=== PATIENT | male | born 1990 | race Two or more races ===

== ENCOUNTER 2025-01-08 10:03 | Inpatient (IN) | payer MEDICAID, OTHER, SELFPAY ==
[2025-01-08 10:08] VITALS: BP 138/80; BP 139/79; PULSE 61; PULSE 78; RESP 16; TEMP 36.4; O2SAT 100; O2SAT 98; BMI 25.7
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
[2025-01-08 10:34] VITALS: RESP 16
[2025-01-08 11:15] LABS: MANUAL DIFF FLAG NO
[2025-01-08 11:18] LABS: Basophils Absolute Auto 0.1 X10*3/uL (0.0-0.2); Eosinophils Absolute Auto 0.1 X10*3/uL (0.0-0.4); Eosinophils Percent Auto 2.1 % (0-4); Hematocrit 44.2 % (42.0-52.0); Hemoglobin 14.4 g/dl (14.0-18.0); Imm Gran Abs Auto 0.01 X10*3/uL (0.00-0.03); Imm Gran Pct Auto 0.2 % (0.0-0.4); Lymphocytes Percent Auto 20.2 % (20-40); Mean Corpuscular HGB Conc 32.6 g/dl (31.0-36.0); Mean Corpuscular Hemoglobin 24.7 pg (27.0-33.0); Mean Corpuscular Volume 75.8 fL (80.0-98.0); Mean Platelet Volume 10.8 fL (9.4-12.4); Monocytes Absolute Auto 0.2 X10*3/uL (0.1-1.2); Monocytes Percent Auto 4.5 % (2-11); Neutrophils Absolute Auto 3.5 x10*3/uL (2.0-8.3); Platelet Count 225 X10*3/uL (160-400); Red Blood Count 5.83 X10*6/uL (4.60-5.80); Red Cell Distribution Width 15.5 % (11.0-16.0); White Blood Count 4.8 X10*3/uL (4.8-10.8)
[2025-01-08 11:25] LABS: Appearance Urine Clear; Color Urine Yellow; Glucose Urine UA Negative (Negative); Leukocyte Esterase Urine Negative (Negative); Nitrite Urine Negative (Negative); Urine Blood Negative (Negative); Urine Ketones Negative (Negative); Urine Protein Negative (Neg-Trace)
[2025-01-08 11:29] LABS: Amphetamine Screen Urine Not Detected (Not Detect); Barbiturates, Urine Not Detected (Not Detect); Benzodiazepines Screen Urine Not Detected (Not Detect); Buprenorphine Scr Not Detected (Not Detect); Cannabinoid Screen Urine Not Detected (Not Detect); Cocaine Screen Urine Not Detected (Not Detect); Fentanyl, urine Not Detected (Not Detect); Methadone Screen, Urine Not Detected (Not Detect); Opiate Screen Urine Not Detected (Not Detect); Oxycodone Screen Urine Not Detected (Not Detect); Phencyclidine Screen Urine Not Detected (Not Detect)
--- NOTE | 2025-01-08 11:39 | PC.NURSE ---
pt reports I have no behavioral health concerns
[2025-01-08 11:46] LABS: Alanine Aminotransferase 20 U/L (0-40); Albumin Level 4.2 g/dL (3.5-5.0); Alkaline Phosphatase 71 U/L (39-117); Anion Gap 13 (12-20); Aspartate Amino Transferase 20 U/L (5-37); Bilirubin Total 0.3 mg/dL (0.0-1.0); Blood Urea Nitrogen 11 mg/dL (9-16); Calcium 9.2 mg/dL (8.4-10.2); Carbon Dioxide 25 mmol/L (22-29); Chloride 106 mmol/L (96-108); Creatinine Clr Calc Pharmacy 144.4; Estimated Glomerular Filt Rate > 60; Ethanol < 10 mg/dL; Glucose Random 124 mg/dL (60-115); Sodium 140 mmol/L (135-145)
[2025-01-08 15:13] VITALS: RESP 16
[2025-01-08] MEDS: Acetaminophen 325 MG TABLET 650 MG PO (15:39)
--- NOTE | 2025-01-08 19:15 | PC.NURSE ---
patient awakens and has a little pressured speech from time to time mildly restless appears in no distress
--- NOTE | 2025-01-08 20:14 | PHA.MEDREC ---
Pharmacy Consult ? Medication Reconciliation Pharmacy has completed the medication reconciliation.done using meds brought to pharmacy
[2025-01-08 20:44] VITALS: BP 139/79
[2025-01-08] MEDS: carBAMazepine ER 200 MG TAB.ER.12H 400 MG PO (20:44)
[2025-01-08] MEDS: amLODIPine Besylate 5 MG TABLET PO (20:44)
[2025-01-08 22:02] VITALS: BP 147/90; PULSE 90; RESP 16; TEMP 36.9; O2SAT 97
--- NOTE | 2025-01-08 22:03 | PC.NURSE ---
vs were a late entry, taken around 2100 prior to administration of norvasc
[2025-01-09] MEDS: Acetaminophen 325 MG TABLET 650 MG PO ×2 (01:23→10:44)
[2025-01-09] MEDS: diphenhydrAMINE HCL 25 MG CAPSULE 50 MG PO (01:24)
[2025-01-09 01:32] VITALS: BP 134/75; PULSE 93; RESP 18; TEMP 36.6; O2SAT 98
--- NOTE | 2025-01-09 07:29 | PC.NURSE ---
ASSUMED CARE OF PT AT 0645. PT IS LAYING IN BED SLEEPING. NO APPARENT DISTRESS. AWAITING CARE TEAM ASSESSMENT.
[2025-01-09 08:01] VITALS: BP 105/48; PULSE 80; RESP 14; TEMP 36.7; O2SAT 97
[2025-01-09 08:38] VITALS: BP 110/64
[2025-01-09] MEDS: amLODIPine Besylate 5 MG TABLET PO (08:38)
[2025-01-09] MEDS: carBAMazepine ER 200 MG TAB.ER.12H 400 MG PO ×2 (08:39→20:28)
--- NOTE | 2025-01-09 10:28 | MHC.EDTECH ---
ambulated to bathroom to shower, AM care done ,RN aware
[2025-01-09 15:55] VITALS: BP 107/81; PULSE 83; RESP 19; TEMP 36.5; O2SAT 99
[2025-01-09 19:48] VITALS: BP 146/77; PULSE 76; RESP 16; TEMP 37.1; O2SAT 98
[2025-01-09] MEDS: Nicotine Polacrilex 2 MG GUM 4 MG BUCCAL (19:48)
[2025-01-09] MEDS: traZODone HCL 100 MG TABLET PO (20:29)
[2025-01-10] VITALS (29 sets, daily range): BP systolic 142–147; BP diastolic 77–94; PULSE 64–86; RESP 16–24; TEMP 37.1; O2SAT 96–100
[2025-01-10] MEDS: Nicotine Polacrilex 2 MG GUM 4 MG BUCCAL (01:36)
[2025-01-10] MEDS: OLANZapine 7.5 MG TABLET 15 MG PO (01:51)
--- NOTE | 2025-01-10 01:52 | PC.NURSE ---
Addendum entered by Carlos Enrique Cárdenas RN 01/10/25 03:36: pt asleep Addendum entered by Carlos Enrique Cárdenas RN 01/10/25 03:14: back in bed in side lying position Addendum entered by Carlos Enrique Cárdenas RN 01/10/25 02:52: pt was supine in bed for about 10 minutes now pacing again although no rambling/disorganized speech at this time. Addendum entered by Carlos Enrique Cárdenas RN 01/10/25 02:30: at this time, patient has become less disruptive, ceased shadowboxing in room. continues to pace outside room with headphones on listening to music, drinking water, writing notes/song lyrics on paper. Original Note: as of about 0140, pt becoming increasingly restless, disorganized, rambling, and more difficult to redirect. has shirt off shadow boxing in room. not violent toward staff at this time. multiple requests from staff to reduce volume. took bedtime zyprexa voluntarily after minutes of deliberating with this nurse.
--- NOTE | 2025-01-10 07:30 | PC.NURSE ---
Assumed care of patient at 0645, patient appears to be in no apparent distress this am, sleeping, respirations even and unlabored. Continue plan of care for IPLOC
--- NOTE | 2025-01-10 08:43 | MHC.EDTECH ---
Patient refused to have EKG done.
--- NOTE | 2025-01-10 08:45 | PC.NURSE ---
patient refusing am medications and EKG stating I don't need that shit
--- NOTE | 2025-01-10 10:00 | PC.NURSE ---
pt once again refused am medications
--- NOTE | 2025-01-10 10:44 | PC.NURSE ---
pt pacing around BH pod, threatening staff verbally, stating I know what I be doing, bright bolaños gotta fuck with me . when offered PO medications, he adamantly refused I don't need any fucking medications, you aint knowing what I need, stupid bitch . pt continues to be hyperverbal, perseverating on medications and being discharged
--- NOTE | 2025-01-10 10:59 | PC.NURSE ---
pt continues to threaten staff, yall nurses are stupid, I swear Im gonna take yall out
--- NOTE | 2025-01-10 11:05 | MHC.EDTECH ---
Patient refused to have vitals checked.
[2025-01-10] MEDS: diphenhydrAMINE HCL 50 MG/ML VIAL IM (11:30)
[2025-01-10] MEDS: Haloperidol Lactate 5 MG/ML VIAL IM (11:30)
[2025-01-10] MEDS: Midazolam HCl 2 MG/2 ML VIAL IM (12:20)
[2025-01-10] MEDS: Acetaminophen 325 MG TABLET 650 MG PO (13:56)
--- NOTE | 2025-01-10 14:14 | MHC.CARE ---
Oren Waterman ([phone]) [facility] outreach
[2025-01-10] MEDS: OLANZapine 10 MG VIAL IM (14:45)
--- NOTE | 2025-01-10 17:22 | MHC.CARE ---
Spoke to patient's ACCS worker, Oren Waterman, he stated that patient has not missed an Invega 234 mg injection in 3-4 months. Oren brought him to [facility] for the shot on 12/28/24, patient complained about the VNA so it was switched to the pharmacy. [facility] ([phone]), still delivers other medications once a day but are contracted for two visits a day and they leave am and pm medications with him. Patient has not taken Zyprexa since 09/29/24 because he believes it is an antidepressant that will make him gain weight.
[2025-01-10] MEDS: chlorproMAZINE HCl 25 MG/ML AMPUL 100 MG IM ×2 (17:35→19:00)
[2025-01-10] MEDS: diazePAM 10 MG/2 ML CARTRIDGE IM (19:00)
[2025-01-10] MEDS: OLANZapine 10 MG VIAL 20 MG IM (20:50)
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
--- NOTE | 2025-01-11 00:33 | PC.NURSE ---
This RN assumed pt care @ 2300. Pt up and ambulating to the restroom Plan of care ongoing.
--- NOTE | 2025-01-11 01:24 | PC.NURSE ---
Pt requested and given food and drink Pt returned to bed Plan of care ongoing.
--- NOTE | 2025-01-11 03:52 | PC.NURSE ---
Pt at nurses station stating I need you to make sure that you get everything out of that room Pt requested and given food and drink Plan of care ongoing.
--- NOTE | 2025-01-11 03:59 | PC.NURSE ---
Pt at nurses station stating that fat bitch from yesterday Plan of care ongoing.
--- NOTE | 2025-01-11 04:17 | PC.NURSE ---
Pt back at nurses station Pt speaking tangentially Plan of care ongoing
--- NOTE | 2025-01-11 04:25 | PC.NURSE ---
Pt at the nurses station yelling at tech get it through your fucking head, you dont listen. Pt getting aggressive Security called Plan of care ongoing.
[2025-01-11] MEDS: OLANZapine 10 MG VIAL 20 MG IM (04:39)
--- NOTE | 2025-01-11 04:45 | PC.NURSE ---
Pt requesting meds Pt medicated per oct Plan of care ongoing.
--- NOTE | 2025-01-11 08:48 | PC.NURSE ---
Patient up to nurses station, refusing medication, calling staff liars, calm and this time
--- NOTE | 2025-01-11 09:07 | PC.NURSE ---
pt declined repeat vitals, educated on importance of of vitals d/t medical history.
--- NOTE | 2025-01-11 09:07 | MHC.EDTECH ---
pt refused vital signs and EKG. Pt ate 100% of breakfast. Patient previously asked for shower but now refusing.
[2025-01-11] MEDS: carBAMazepine ER 200 MG TAB.ER.12H 400 MG PO ×2 (11:01→20:24)
[2025-01-11] MEDS: Acetaminophen 325 MG TABLET 650 MG PO (11:24)
--- NOTE | 2025-01-11 11:41 | PC.NURSE ---
Patient up ambulating around unit, singing and listening to music, speech is fast and not making sense
--- NOTE | 2025-01-11 17:18 | MHC.EDTECH ---
patient continues to refuse vital signs
--- NOTE | 2025-01-11 18:19 | PC.NURSE ---
pt has been manic with rapid speech and pacing in the ed pod, pt offered po prn's and declined, becoming agitated when offered. I don't trust white people. you are trying to make me have a seizure , pt did not threaten,
[2025-01-11] MEDS: diphenhydrAMINE HCL 25 MG CAPSULE 50 MG PO (20:24)
--- NOTE | 2025-01-11 23:16 | MHC.EDTECH ---
pt refusing EKG. rn aware.
[2025-01-12] MEDS: Acetaminophen 325 MG TABLET 650 MG PO ×2 (04:27→19:17)
[2025-01-12] MEDS: diphenhydrAMINE HCL 25 MG CAPSULE 50 MG PO (06:48)
[2025-01-12 08:11] VITALS: BP 0/0
[2025-01-12] MEDS: amLODIPine Besylate 5 MG TABLET PO (08:11)
[2025-01-12] MEDS: carBAMazepine ER 200 MG TAB.ER.12H 400 MG PO ×2 (08:13→21:10)
--- NOTE | 2025-01-12 10:26 | PC.NURSE ---
pt took a shower and ate breakfast, medicated as ordered, has been hyperverbal and manic this am, but less so than last night, pt has been redirectable when asked to sing more softly, pt has been listening to music on headphones and generally has appeared happy. currently watching tv with another pt, pt did talk with Don from security who he knows from [facility] and the have a good connection
[2025-01-12 13:41] VITALS: BP 146/70; PULSE 93; RESP 18; TEMP 36.6; O2SAT 96
--- NOTE | 2025-01-12 15:40 | PC.ADMIT ---
David is a 34 y/o icelandic speaking male who was admitted to [facility] at 1305 from the pod on a 12b for treatment of schizoaffective d/o , bipolar type. Pt was at [facility] walking in and out of peers room, broke the door and eloped. [place] [place]. Pt was acting erratically. Suspicion is that pt was non-compliant with medications in the community. In the ED pt became agitated, vulgar and aggressive requiring restraints in excess of 10 hrs. Pt was cooperative when coming to the floor, is A&O X3, but has no insight into the situation and hospitalization. Pt suspicious and refused to sign MIMI?s. Mood is euphoric, manic with an elated affect. Speech is pressured and loud, thoughts are disorganized, and tangential with flight of ideas. Pt has difficulty remaining focused. Pt denies SI/HI/AVH, with no intent to harm self or others. Pt believes the ativan is poison and that certain people want to hurt him. Pt reports hx of TBI as a child. Pt has delusions of grandeur that he is writing rap songs that are going to make him famous. Pt reports a good appetite with no recent weight loss. Pt reports 4 hours of sleep per night. Pts tox screen was negative and he denies substance use. Pt reports being a daily smoker and requests nicotine replacement gum. Pt denies any acute physical complaints. Pt placed on 15 minute safety checks.
[2025-01-12 20:00] VITALS: PULSE 107; RESP 18; TEMP 36.7; O2SAT 98
[2025-01-12] MEDS: OLANZapine ODT 10 MG TAB.RAPDIS 20 MG TRANSLINGU (21:10)
[2025-01-13 08:00] VITALS: RESP 18
[2025-01-13] MEDS: carBAMazepine ER 200 MG TAB.ER.12H 400 MG PO ×2 (10:00→19:52)
--- NOTE | 2025-01-13 10:13 | HO.PSYADMNOT ---
HPI Chief Complaint: jean Diagnostics Vital Signs (24Hr): Vital Signs - 24 hr 01/12/25 13:41 01/12/25 20:00 01/13/25 08:00 Temperature 97.8 F 98.0 F Pulse Rate 93 107 H Respiratory Rate 18 18 18 Blood Pressure 146/70 H Pulse Oximetry 96 98 Oxygen Delivery Method Room Air Room Air BMI result Body Mass Index 25.7 Labs 01/08/25 11:10 01/08/25 11:10 Meds/Allergies Meds Home Medications ?Medication ?Instructions ?Recorded ?Confirmed ?Type amlodipine 5 mg tablet 5 mg PO DAILY 01/08/25 01/08/25 History benztropine 1 mg tablet 1 mg PO BEDTIME PRN eps 01/08/25 01/08/25 History carbamazepine 400 mg 400 mg PO BID 01/08/25 01/08/25 History tablet,extended release,12 hr (Tegretol XR) olanzapine 15 mg tablet 15 mg PO BEDTIME 01/08/25 01/08/25 History sennosides 8.6 mg tablet (senna) 17.2 mg PO BEDTIME PRN Constipation 01/08/25 01/08/25 History trazodone 100 mg tablet 100 mg PO BEDTIME PRN insomnia not 01/08/25 01/08/25 History relieved by benadryl Allergies Allergies Allergy/AdvReac Type Severity Reaction Status Date / Time cat dander Allergy Intermediate Difficulty Verified 01/08/25 10:30 Breathing dog dander Allergy Intermediate Difficulty Verified 01/08/25 10:30 Breathing From Wellbutrin AdvReac Intermediate Irritable Uncoded 01/08/25 10:21 Assessment & Plan Statement Statement: I have reviewed the history and physical and performed a pertinent examination on my patient. No changes have occurred unless specified. If the History and Physical was not performed prior to admission, the Hospitalist's service will be consulted for completing the admission physical. Time Spent With Patient Time: Total time managing care of this patient today ____ minutes.
[2025-01-13] MEDS: diphenhydrAMINE HCL 25 MG CAPSULE 50 MG PO (12:48)
[2025-01-13] MEDS: diazePAM 5 MG TABLET 10 MG PO ×2 (12:49→19:53)
[2025-01-13] MEDS: chlorproMAZINE HCl 100 MG TABLET 200 MG PO ×2 (12:49→19:53)
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
[2025-01-13] MEDS: OLANZapine ODT 10 MG TAB.RAPDIS 20 MG TRANSLINGU (19:51)
[2025-01-13] MEDS: LORazepam 1 MG TABLET PO (19:51)
[2025-01-13 20:00] VITALS: BP 139/88; PULSE 128; TEMP 36.4; O2SAT 100
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
[2025-01-14 08:00] VITALS: BP 150/62; PULSE 84; RESP 18; TEMP 36.6; O2SAT 99
[2025-01-14] MEDS: carBAMazepine ER 200 MG TAB.ER.12H 400 MG PO (09:00)
[2025-01-14] MEDS: amLODIPine Besylate 5 MG TABLET PO (09:00)
[2025-01-14] MEDS: diphenhydrAMINE HCL 25 MG CAPSULE 50 MG PO (09:29)
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
--- NOTE | 2025-01-14 12:23 | PC.NURSE ---
David was transferred from [facility] to [facility] at 1218. During the transfer he was accompanied by 2 security guards and this RN. Throughout the transport David made hyperverbal derogatory comments to RN, voiced insistence that he be treated only by males and indicated disrespect for female employees. He was otherwise cooperative with transfer.
[2025-01-14] MEDS: Acetaminophen 325 MG TABLET 650 MG PO (13:06)
[2025-01-14] MEDS: Nicotine Polacrilex 2 MG GUM 4 MG BUCCAL (18:18)
[2025-01-14] MEDS: chlorproMAZINE HCl 100 MG TABLET 200 MG PO (21:25)
[2025-01-14] MEDS: diazePAM 5 MG TABLET 10 MG PO (21:25)
[2025-01-14 23:08] VITALS: BP 142/89; PULSE 78; RESP 16; TEMP 36.6; O2SAT 96
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
[2025-01-15] MEDS: carBAMazepine ER 200 MG TAB.ER.12H 400 MG PO ×2 (09:43→20:23)
[2025-01-15] MEDS: amLODIPine Besylate 5 MG TABLET PO (09:43)
[2025-01-15 10:28] VITALS: RESP 18
[2025-01-15] MEDS: Acetaminophen 325 MG TABLET 650 MG PO ×2 (11:40→20:25)
[2025-01-15 20:00] VITALS: BP 143/82; PULSE 92; RESP 18; TEMP 36.5; O2SAT 98
[2025-01-15] MEDS: OLANZapine ODT 10 MG TAB.RAPDIS 20 MG TRANSLINGU (20:23)
[2025-01-16 09:17] VITALS: BP 109/58; PULSE 114; RESP 14; TEMP 36.6; O2SAT 97
[2025-01-16] MEDS: carBAMazepine ER 200 MG TAB.ER.12H 400 MG PO ×2 (09:18→20:14)
[2025-01-16] MEDS: amLODIPine Besylate 5 MG TABLET PO (09:19)
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
[2025-01-16] MEDS: Nicotine Polacrilex 2 MG GUM 4 MG BUCCAL ×2 (16:30→20:02)
[2025-01-16 19:50] VITALS: BP 126/67; PULSE 93; RESP 16; TEMP 36.4; O2SAT 96
[2025-01-16] MEDS: OLANZapine ODT 10 MG TAB.RAPDIS 20 MG TRANSLINGU (20:13)
[2025-01-16] MEDS: Acetaminophen 325 MG TABLET 650 MG PO (21:46)
[2025-01-17] MEDS: Nicotine Polacrilex 2 MG GUM 4 MG BUCCAL ×3 (01:41→21:42)
[2025-01-17 07:20] VITALS: BP 113/53; PULSE 71; RESP 14; TEMP 36.4; O2SAT 100
[2025-01-17 08:08] VITALS: BP 113/53
[2025-01-17] MEDS: amLODIPine Besylate 5 MG TABLET PO (08:08)
[2025-01-17] MEDS: carBAMazepine ER 200 MG TAB.ER.12H 400 MG PO ×2 (08:08→20:38)
--- NOTE | 2025-01-17 11:33 | PC.NURSE ---
Pt signed in on a CV then signed a 3 day up on 01/20
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
[2025-01-17] MEDS: Acetaminophen 325 MG TABLET 650 MG PO (17:43)
[2025-01-17 19:10] VITALS: BP 139/65; PULSE 80; RESP 16; TEMP 36.5; O2SAT 99
[2025-01-17 20:13] LABS: MANUAL DIFF FLAG NO
[2025-01-17 20:15] LABS: Basophils Absolute Auto 0.1 X10*3/uL (0.0-0.2); Basophils Percent Auto 1.3 % (0-2); Eosinophils Absolute Auto 0.5 X10*3/uL (0.0-0.4); Eosinophils Percent Auto 11.1 % (0-4); Hematocrit 46.2 % (42.0-52.0); Imm Gran Abs Auto 0.02 X10*3/uL (0.00-0.03); Imm Gran Pct Auto 0.4 % (0.0-0.4); Lymphocytes Absolute Auto 1.6 X10*3/uL (1.2-4.9); Lymphocytes Percent Auto 35.8 % (20-40); Mean Corpuscular HGB Conc 32.5 g/dl (31.0-36.0); Mean Corpuscular Hemoglobin 24.6 pg (27.0-33.0); Mean Corpuscular Volume 75.7 fL (80.0-98.0); Monocytes Absolute Auto 0.4 X10*3/uL (0.1-1.2); Monocytes Percent Auto 8.9 % (2-11); Neutrophils Absolute Auto 1.9 x10*3/uL (2.0-8.3); Neutrophils Percent Auto 42.5 % (45-73); Platelet Count 264 X10*3/uL (160-400); Red Cell Distribution Width 15.5 % (11.0-16.0); White Blood Count 4.5 X10*3/uL (4.8-10.8)
[2025-01-17 20:31] LABS: Alanine Aminotransferase 35 U/L (0-40); Albumin Level 4.4 g/dL (3.5-5.0); Alkaline Phosphatase 97 U/L (39-117); Anion Gap 14 (12-20); Aspartate Amino Transferase 31 U/L (5-37); Bilirubin Direct < 0.2 mg/dL (0.0-0.5); Bilirubin Total 0.1 mg/dL (0.0-1.0); Blood Urea Nitrogen 18 mg/dL (9-16); Calcium 9.5 mg/dL (8.4-10.2); Carbon Dioxide 26 mmol/L (22-29); Chloride 105 mmol/L (96-108); Estimated Glomerular Filt Rate > 60; Glucose Random 106 mg/dL (60-115); Potassium 4.5 mmol/L (3.3-5.1); Sodium 140 mmol/L (135-145); Total Protein 7.6 g/dL (6.5-8.0)
[2025-01-17 20:38] LABS: Cholesterol 186 mg/dL (<200); HDL Cholesterol 44 mg/dL (>40); LDL Cholesterol Calculated 73 mg/dL (<100); Triglycerides 347 mg/dL (<150)
[2025-01-17] MEDS: OLANZapine ODT 10 MG TAB.RAPDIS 20 MG TRANSLINGU (20:38)
[2025-01-17 20:54] LABS: Free T4 (Free Thyroxine) 0.68 ng/dL (0.71-1.85); Thyroid Stimulating Hormone 1.53 uIU/mL (0.32-4.0)
[2025-01-17 21:06] LABS: Folate 8.4 ng/mL (> or = 4.0); Vitamin B12 445 pg/mL (200-900)
[2025-01-18] MEDS: Nicotine Polacrilex 2 MG GUM 4 MG BUCCAL ×3 (02:23→20:19)
[2025-01-18 06:08] LABS: Estimated Average Glucose 111 mg/dL; Hemoglobin A1c % 5.5 % (<6.0); Total Hemoglobin (HGBA1C) 3821.1195 umol/L
[2025-01-18 08:00] VITALS: BP 129/68; PULSE 89; RESP 16; TEMP 36.5; O2SAT 100
[2025-01-18] MEDS: amLODIPine Besylate 5 MG TABLET PO (08:31)
[2025-01-18] MEDS: carBAMazepine ER 200 MG TAB.ER.12H 400 MG PO ×2 (08:31→20:19)
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
[2025-01-18 20:00] VITALS: BP 109/60; PULSE 91; RESP 16; TEMP 36.9; O2SAT 99
[2025-01-18] MEDS: OLANZapine ODT 10 MG TAB.RAPDIS 20 MG TRANSLINGU (20:19)
[2025-01-19] MEDS: Nicotine Polacrilex 2 MG GUM 4 MG BUCCAL ×5 (01:12→21:43)
[2025-01-19 07:55] VITALS: BP 152/88; PULSE 77; RESP 16; TEMP 36.4; O2SAT 97
[2025-01-19] MEDS: carBAMazepine ER 200 MG TAB.ER.12H 400 MG PO ×2 (08:17→20:07)
[2025-01-19] MEDS: amLODIPine Besylate 5 MG TABLET PO (08:17)
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
[2025-01-19 20:00] VITALS: BP 133/75; PULSE 87; RESP 16; TEMP 36.4; O2SAT 99
[2025-01-19] MEDS: OLANZapine ODT 10 MG TAB.RAPDIS 20 MG TRANSLINGU (20:07)
[2025-01-19] MEDS: Acetaminophen 325 MG TABLET 650 MG PO (21:24)
[2025-01-20] MEDS: Nicotine Polacrilex 2 MG GUM 4 MG BUCCAL (04:43)
[2025-01-20] MEDS: Acetaminophen 325 MG TABLET 650 MG PO (04:43)
[2025-01-20 08:00] VITALS: BP 126/63; PULSE 84; RESP 16; TEMP 36.4; O2SAT 98
[2025-01-20 08:13] VITALS: BP 126/63
[2025-01-20] MEDS: carBAMazepine ER 200 MG TAB.ER.12H 400 MG PO (08:13)
[2025-01-20] MEDS: amLODIPine Besylate 5 MG TABLET PO (08:13)
--- NOTE | 2025-01-20 13:53 | PC.NURSE ---
Pt was asked about smoking cessatrion and he refused. Pt was going to continue smoking upon discharge.
== END 2025-01-20 12:25 | disposition home or self-care (01) | DRG 753 ==
LOC: HO.ED 12:05 → HO.PADLT16 01-12 11:08 → HO.PM5 01-14 06:17 → HO.PADLT16 01-14 12:14
PROVIDERS: Admitting Provider Psychiatry & Neurology Psychiatry; Emergency Provider Emergency Medicine; Visit Provider Psychiatry & Neurology Psychiatry
DX: F30.9 Manic episode, unspecified (principal); F17.210 Nicotine dependence, cigarettes, uncomplicated; Z59.02 Unsheltered homelessness; Z71.6 Tobacco abuse counseling; Z79.899 Other long term (current) drug therapy
CPT/HCPCS: 36415; 80048; 80053; 80061; 80076; 80156; 80307; 81003; 82607; 82746; 83036; 84439; 84443; 85025; 99285; J1200; J1630; J2250; J2359; J3230; J3360; S9485

== ENCOUNTER → 2025-01-12 10:52 | Outpatient (BNV) | payer OTHER, SELFPAY | PROVIDERS: Admitting Provider Psychiatry & Neurology Psychiatry; Emergency Provider Emergency Medicine; Visit Provider Psychiatry & Neurology Psychiatry | DX: F30.9 Manic episode, unspecified (principal) | CPT/HCPCS: 99231; 99232; 99233 ==